=== PATIENT | male | born 1945 | race Caucasian/White ===

== ENCOUNTER 2017-03-26 17:13 | Inpatient (IN) | payer OTHER, MEDICARE ==
[2017-03-26] MEDS ORDERED: Atropine Sulfate 0.1 mg/mL 5 mL Syr IVP ONE ×2 (17:44→18:30)
[2017-03-26 17:52] LABS: % BASOPHILS 1.1 % (0.0-2.0); % EOSINOPHILS 4.6 % (0.0-5.0); % LYMPHOCYTES 30.8 % (20.0-50.0); % MONOCYTES 9.1 % (2.0-10.0); % NEUTROPHILS 54.4 % (40.0-80.0); HEMATOCRIT 42.4 % (41.0-60); MEAN CELL VOLUME 99.1 fl (80-99); MEAN CORPUSCULAR HEMOGLOBIN 32.8 pg (27.0-31.0); MEAN CORPUSCULAR HGB CONC 33.1 pg (28.0-36.0); MEAN PLATELET VOLUME 8.4 fl; NEUTROPHILE ABSOLUTE 3.5 Th/cmm (1.8-8.0); PLATELET COUNT 169 Th/cmm (150-400); RED BLOOD COUNT 4.27 Mil/cmm (3.80-5.80); RED CELL DISTRIBUTION WIDTH 12.7 % (11.5-20.0); WHITE BLOOD COUNT 6.5 Th/cmm (4.8-10.8)
--- NOTE | 2017-03-26 17:52 | ED Physician Chart ---
ED Chief Complaint/HPI - Patient Information Date Seen:: 03/26/17 Time Seen:: 17:30 Chief Complaint:: bradycardia History of Present Illness:: Patient took his blood pressure today which was 148/83 with a pulse of 39. He feels lightheaded and slightly short of breath. He denies chest pain. Allergies:: Allergies Allergy/AdvReac Type Severity Reaction Status Date / Time No Known Allergies Allergy Verified 03/26/17 17:33 Vitals:: Vital Signs - 8 hr 03/26/17 17:13 Temp 97.3 F HR 39 RR 16 BP 168/69 O2 Sat % 97 Historian:: Patient Review:: Nurse's Note Reviewed ED Review of Systems - Review of Systems General/Constitutional: No fever, No chills Skin: No skin lesions Head: No headache Eyes: No loss of vision ENT: No earache Neck: No neck pain, No swelling Cardio Vascular: No chest pain Pulmonary: SOB GI: No nausea, No vomiting G/U: No dysuria Musculoskeletal: No bone or joint pain, No muscle pain Endocrine: No polyuria, No polydipsia Psychiatric: No prior psych history Hematopoietic: No bruising Allergic/Immuno: No urticaria Neurological: No syncope, No focal symptoms ED Past Medical History - Past Medical History Past Medical History: HTN Family History: None Social History: Smoker, Alcohol, Other (smokes about 4-6 cigarettes a day; smoked one package of cigarettes a day for 50 years. Drinks alcohol about 3 times a week) Surgical History: other (chest for pneumothorax) Psychiatricy History: None Medication: Reviewed Family Medical History - Family Member Mother History Unknown: Yes ED Physical Exam - Physical Examination General/Constitutional: Well-developed, well-nourished, Alert, No distress Head: Atraumatic Eyes: Lids, conjuctiva normal, PERRL Skin: Nl inspection, No rash, No skin lesions, No ecchymosis ENMT: External ears, nose nl Neck: No nuchal rigidity Other Respiratory comments:: 2 out of 4 inspiratory expiratory wheezing Other Cardio Vascular comments:: faint regular rhythm with no murmur or extra sound GI: No tenderness/rebounding/guarding, No organomegaly, No hernia, Nondistended Extremities: No tenderness or effusion, Normal digits & nails Neuro/Psych: No focal deficits Misc: No paraspinal tenderness ED Labs/Radiology/EKG Results - Radiology Results Results: CXR normal - EKG Interpretations Rate & Rhythm: complete heart block; rate 38; RBBB ED Septic Shock - . Is Septic Shock (SBP<90, OR Lactate>4 mmol\L) present?: No - <6hrs of presentation: Vital Signs: Vital Signs - 8 hr 03/26/17 17:13 Temp 97.3 F HR 39 RR 16 BP 168/69 O2 Sat % 97 ED Reassessment (Disposition) - Reassessment Reassessment Condition:: Unchanged - Diagnosis Diagnosis:: bradycardia - Patient Disposition Admitted to:: Telemetry Condition at Disposition:: Unchanged ED Discharge Plan - Patient Disposition Admit/Discharge/Transfer: Acute Care w/in this hosp Condition at Disposition: Stable
[2017-03-26 18:10] LABS: ANION GAP 11.9 (7.0-16.0); BUN - UREA NITROGEN 21 mg/dL (7-25); CALCIUM SERUM 9.1 mg/dL (8.6-10.3); CARBON DIOXIDE 20.1 mEq/L (21.0-31.0); CHLORIDE 111 mEq/L (98-107); GLUCOSE 120 mg/dL (70-105); SODIUM SERUM 139 mEq/L (136-145)
[2017-03-26] MEDS ORDERED: guaiFENesin 200 MG/10 ML UDC PO PRN (18:16)
[2017-03-26] MEDS ORDERED: Mag Sulfate 2gm/50mL Premix 2 GM/50 ML BAG IV ONE ×3 (18:16→18:33)
[2017-03-26] MEDS: Albuterol Nebulizer 2.5mg/3mL HHN SCH (19:53)
[2017-03-26] MEDS: D5-0.9%NS 1,000 ML IV SCH (22:47)
[2017-03-27 04:46] LABS: % EOSINOPHILS 4.4 % (0.0-5.0); % LYMPHOCYTES 24.9 % (20.0-50.0); % MONOCYTES 7.1 % (2.0-10.0); % NEUTROPHILS 62.6 % (40.0-80.0); MEAN CORPUSCULAR HEMOGLOBIN 32.9 pg (27.0-31.0); MEAN CORPUSCULAR HGB CONC 33.2 pg (28.0-36.0); MEAN PLATELET VOLUME 8.3 fl; NEUTROPHILE ABSOLUTE 4.7 Th/cmm (1.8-8.0); PLATELET COUNT 163 Th/cmm (150-400); RED BLOOD COUNT 4.25 Mil/cmm (3.80-5.80); RED CELL DISTRIBUTION WIDTH 13.6 % (11.5-20.0); WHITE BLOOD COUNT 7.4 Th/cmm (4.8-10.8)
[2017-03-27 05:04] LABS: ALB/GLOB RATIO 1.6 (1.0-1.8); ALKALINE PHOSPHATASE 96 U/L (34-104); ANION GAP 8.7 (7.0-16.0); BILIRUBIN,TOTAL 0.4 mg/dL (0.3-1.0); BUN - UREA NITROGEN 19 mg/dL (7-25); BUN/CREATININE RATIO 21.1; CALCIUM SERUM 8.8 mg/dL (8.6-10.3); CHLORIDE 113 mEq/L (98-107); CREATININE - SERUM 0.9 mg/dL (0.7-1.3); GLUCOSE 125 mg/dL (70-105); MAGNESIUM 2.1 mg/dL (1.9-2.7); PHOSPHOROUS 3.1 mg/dL (2.5-5.0); POTASSIUM SERUM 3.7 mEq/L (3.5-5.1); SGOT 30 U/L (13-39); SGPT/ALT 26 U/L (7-52); SODIUM SERUM 141 mEq/L (136-145)
[2017-03-27] MEDS: Albuterol Nebulizer 2.5mg/3mL HHN SCH ×4 (07:02→19:04)
[2017-03-27 07:44] VITALS: BP 139/66
--- NOTE | 2017-03-27 08:33 | Diagnostic Imaging Report ---
CHEST X-RAY: AP view INDICATION: Arrhythmia COMPARISON: None FINDINGS: Chronic lung changes are noted with left basal scarring. There is no focal consolidation or pleural effusions The heart is normal in size. Atherosclerotic vascular disease noted. Degenerative changes of the spine are noted. There may have been old trauma to the left mid clavicle. IMPRESSION: Chronic lung changes and left basal scarring. No focal consolidation identified. Atherosclerotic vascular disease.
--- NOTE | 2017-03-27 08:39 | General Progress Note ---
Subjective - Review of Systems Service Date: 03/27/17 Events since last encounter: claudio in 30s await Cardiology eval Objective - Results Result Diagrams: 03/27/17 04:34 03/27/17 04:34 Recent Labs: Laboratory Last Values WBC 7.4 Th/cmm (4.8-10.8) 03/27/17 04:34 RBC 4.25 Mil/cmm (3.80-5.80) 03/27/17 04:34 Hgb 14.0 gm/dL (12-16) 03/27/17 04:34 Hct 42.0 % (41.0-60) 03/27/17 04:34 MCV 99.0 fl (80-99) 03/27/17 04:34 MCH 32.9 pg (27.0-31.0) H 03/27/17 04:34 MCHC Differential 33.2 pg (28.0-36.0) 03/27/17 04:34 RDW 13.6 % (11.5-20.0) 03/27/17 04:34 Plt Count 163 Th/cmm (150-400) 03/27/17 04:34 MPV 8.3 fl 03/27/17 04:34 Neutrophils % 62.6 % (40.0-80.0) 03/27/17 04:34 Lymphocytes % 24.9 % (20.0-50.0) 03/27/17 04:34 Monocytes % 7.1 % (2.0-10.0) 03/27/17 04:34 Eosinophils % 4.4 % (0.0-5.0) 03/27/17 04:34 Basophils % 1.0 % (0.0-2.0) 03/27/17 04:34 Sodium 141 mEq/L (136-145) 03/27/17 04:34 Potassium 3.7 mEq/L (3.5-5.1) 03/27/17 04:34 Chloride 113 mEq/L (98-107) H 03/27/17 04:34 Carbon Dioxide 23.0 mEq/L (21.0-31.0) 03/27/17 04:34 Anion Gap 8.7 (7.0-16.0) 03/27/17 04:34 BUN 19 mg/dL (7-25) 03/27/17 04:34 Creatinine 0.9 mg/dL (0.7-1.3) 03/27/17 04:34 Est GFR ( Amer) > 60.0 ml/min (>90) 03/27/17 04:34 Est GFR (Non-Af Amer) > 60.0 ml/min 03/27/17 04:34 BUN/Creatinine Ratio 21.1 03/27/17 04:34 Glucose 125 mg/dL (70-105) H 03/27/17 04:34 Calcium 8.8 mg/dL (8.6-10.3) 03/27/17 04:34 Phosphorus 3.1 mg/dL (2.5-5.0) 03/27/17 04:34 Magnesium 2.1 mg/dL (1.9-2.7) 03/27/17 04:34 Total Bilirubin 0.4 mg/dL (0.3-1.0) 03/27/17 04:34 AST 30 U/L (13-39) 03/27/17 04:34 ALT 26 U/L (7-52) 03/27/17 04:34 Alkaline Phosphatase 96 U/L (34-104) 03/27/17 04:34 Troponin I 0.01 ng/mL (0.01-0.05) 03/26/17 17:45 B-Natriuretic Peptide 377.0 pg/mL (5.0-100.0) H 03/26/17 17:45 Total Protein 5.9 gm/dL (6.0-8.3) L 03/27/17 04:34 Albumin 3.6 gm/dL (4.2-5.5) L 03/27/17 04:34 Globulin 2.3 gm/dL 03/27/17 04:34 Albumin/Globulin Ratio 1.6 (1.0-1.8) 03/27/17 04:34 TSH 1.81 uIU/ml (0.34-5.60) 03/27/17 04:34 - Physical Exam Vitals and I&O: Vital Signs Temp 98.0 F 03/27/17 04:00 Pulse 55 03/27/17 07:02 Resp 16 03/27/17 07:02 BP 139/66 03/27/17 07:44 Pulse Ox 98 03/27/17 07:02 Intake & Output 03/26/17 03/27/17 03/27/17 18:59 06:59 18:59 Intake Total 400 Output Total 450 Balance -50 Weight (lbs) 64.728 kg Intake: Oral 400 Output: Urine 450 Other: # Voids 1 # Bowel Movements 0 Active Medications: Current Medications Acetaminophen (Tylenol) 650 mg PO Q4H PRN PRN Reason: Pain Or Fever above 101 Stop: 05/25/17 18:15 Albuterol Sulfate (Albuterol 2.5mg/3ml Neb Ud) 2.5 mg HHN QIDRT [facility] Stop: 05/25/17 18:59 Last Admin: 03/27/17 07:02 Dose: 2.5 mg Aspirin (Ecotrin) 81 mg PO DAILY [facility] Stop: 05/26/17 08:59 Famotidine (Pepcid) 20 mg PO DAILY [facility] Stop: 05/26/17 08:59 Guaifenesin (Robitussin) 200 mg PO Q4HR PRN PRN Reason: Cough or Congestion Stop: 05/25/17 18:15 Dextrose/Sodium Chloride (D5-0.9%Ns) 1,000 mls @ 100 mls/hr IV .Q10H [facility] Stop: 05/25/17 18:29 Last Admin: 03/26/17 22:47 Dose: 100 mls/hr Nitroglycerin (Nitrostat) 0.4 mg SL Q5MIN PRN PRN Reason: Chest Pain Stop: 05/25/17 18:15 Ondansetron HCl (Zofran) 4 mg IV Q8H PRN PRN Reason: Nausea / Vomiting Stop: 05/25/17 18:15
[2017-03-27] MEDS ORDERED: FLUTICASONE IH SCH (09:00)
[2017-03-27] MEDS ORDERED: SALMETEROL IH SCH (09:00)
--- NOTE | 2017-03-27 09:54 | Diagnostic Imaging Report ---
CHEST X-RAY: AP view INDICATION: Cough, preop COMPARISON: 03/26/2017 FINDINGS: Overlying pads are seen along the left hemithorax. Chronic lung changes are noted with increased left basal lung markings. The heart is normal in size. Atherosclerosis of the aortic arch is noted. IMPRESSION: Chronic lung changes left basal lung markings which may be due to subsegmental atelectasis versus scarring. No focal consolidation identified Atherosclerotic vascular disease.
[2017-03-27] MEDS ORDERED: VTE Chemical Prophylaxis Screen/Admission MC PRN (10:32)
[2017-03-27] MEDS ORDERED: fentaNYL Citrate 100 mcg/2mL Vial IV ONE (12:00)
--- NOTE | 2017-03-27 13:09 | Internal Medicine Prog Note ---
Internal Medicine Subjective - Subjective Service Date: 03/27/17 ([id number]- [facility] dictated) Internal Medicine Objective - Results Result Diagrams: 03/27/17 04:34 03/27/17 04:34 Recent Labs: Laboratory Last Values WBC 7.4 Th/cmm (4.8-10.8) 03/27/17 04:34 RBC 4.25 Mil/cmm (3.80-5.80) 03/27/17 04:34 Hgb 14.0 gm/dL (12-16) 03/27/17 04:34 Hct 42.0 % (41.0-60) 03/27/17 04:34 MCV 99.0 fl (80-99) 03/27/17 04:34 MCH 32.9 pg (27.0-31.0) H 03/27/17 04:34 MCHC Differential 33.2 pg (28.0-36.0) 03/27/17 04:34 RDW 13.6 % (11.5-20.0) 03/27/17 04:34 Plt Count 163 Th/cmm (150-400) 03/27/17 04:34 MPV 8.3 fl 03/27/17 04:34 Neutrophils % 62.6 % (40.0-80.0) 03/27/17 04:34 Lymphocytes % 24.9 % (20.0-50.0) 03/27/17 04:34 Monocytes % 7.1 % (2.0-10.0) 03/27/17 04:34 Eosinophils % 4.4 % (0.0-5.0) 03/27/17 04:34 Basophils % 1.0 % (0.0-2.0) 03/27/17 04:34 Sodium 141 mEq/L (136-145) 03/27/17 04:34 Potassium 3.7 mEq/L (3.5-5.1) 03/27/17 04:34 Chloride 113 mEq/L (98-107) H 03/27/17 04:34 Carbon Dioxide 23.0 mEq/L (21.0-31.0) 03/27/17 04:34 Anion Gap 8.7 (7.0-16.0) 03/27/17 04:34 BUN 19 mg/dL (7-25) 03/27/17 04:34 Creatinine 0.9 mg/dL (0.7-1.3) 03/27/17 04:34 Est GFR ( Amer) > 60.0 ml/min (>90) 03/27/17 04:34 Est GFR (Non-Af Amer) > 60.0 ml/min 03/27/17 04:34 BUN/Creatinine Ratio 21.1 03/27/17 04:34 Glucose 125 mg/dL (70-105) H 03/27/17 04:34 Calcium 8.8 mg/dL (8.6-10.3) 03/27/17 04:34 Phosphorus 3.1 mg/dL (2.5-5.0) 03/27/17 04:34 Magnesium 2.1 mg/dL (1.9-2.7) 03/27/17 04:34 Total Bilirubin 0.4 mg/dL (0.3-1.0) 03/27/17 04:34 AST 30 U/L (13-39) 03/27/17 04:34 ALT 26 U/L (7-52) 03/27/17 04:34 Alkaline Phosphatase 96 U/L (34-104) 03/27/17 04:34 Troponin I 0.01 ng/mL (0.01-0.05) 03/26/17 17:45 B-Natriuretic Peptide 377.0 pg/mL (5.0-100.0) H 03/26/17 17:45 Total Protein 5.9 gm/dL (6.0-8.3) L 03/27/17 04:34 Albumin 3.6 gm/dL (4.2-5.5) L 03/27/17 04:34 Globulin 2.3 gm/dL 03/27/17 04:34 Albumin/Globulin Ratio 1.6 (1.0-1.8) 03/27/17 04:34 TSH 1.81 uIU/ml (0.34-5.60) 03/27/17 04:34 - Physical Exam Vitals and I&O: Vital Signs Temp 98.0 F 03/27/17 04:00 Pulse 55 03/27/17 07:02 Resp 16 03/27/17 07:02 BP 139/66 03/27/17 07:44 Pulse Ox 98 03/27/17 11:52 Intake & Output 03/26/17 03/27/17 03/27/17 18:59 06:59 18:59 Intake Total 400 Output Total 450 Balance -50 Weight (lbs) 142 lb 11.2 oz Intake: Oral 400 Output: Urine 450 Other: # Voids 1 # Bowel Movements 0 Active Medications: Current Medications Acetaminophen (Tylenol) 650 mg PO Q4H PRN PRN Reason: Pain Or Fever above 101 Stop: 05/25/17 18:15 Albuterol Sulfate (Albuterol 2.5mg/3ml Neb Ud) 2.5 mg HHN QIDRT [facility] Stop: 05/25/17 18:59 Last Admin: 03/27/17 10:20 Dose: 2.5 mg Aspirin (Ecotrin) 81 mg PO DAILY [facility] Stop: 05/26/17 08:59 Last Admin: 03/27/17 11:56 Dose: Not Given Famotidine (Pepcid) 20 mg PO DAILY [facility] Stop: 05/26/17 08:59 Last Admin: 03/27/17 11:57 Dose: Not Given Guaifenesin (Robitussin) 200 mg PO Q4HR PRN PRN Reason: Cough or Congestion Stop: 05/25/17 18:15 Heparin Sodium (Porcine) (Heparin) 5,000 units SUBQ Q12H [facility] Stop: 05/26/17 20:59 Dextrose/Sodium Chloride (D5-0.9%Ns) 1,000 mls @ 100 mls/hr IV .Q10H [facility] Stop: 05/25/17 18:29 Last Admin: 03/26/17 22:47 Dose: 100 mls/hr Miscellaneous ([employer] Prophylaxis Screen/ Admission) 1 ea [facility] PRN PRN PRN Reason: PROTOCOL Stop: 05/26/17 10:31 Nitroglycerin (Nitrostat) 0.4 mg SL Q5MIN PRN PRN Reason: Chest Pain Stop: 05/25/17 18:15 Ondansetron HCl (Zofran) 4 mg IV Q8H PRN PRN Reason: Nausea / Vomiting Stop: 05/25/17 18:15 Internal Medicine Assmt/Plan - Assessment Assessment: Bradycardia 3rd Degree AV Block HTN DM Protein calorie malnutrition
[2017-03-27 14:50] LABS: INR 0.93 (0.5-1.4); PROTHROMBIN TIME (TEST) 9.7 SECONDS (9.5-11.5)
[2017-03-27 14:56] LABS: URINE BILIRUBIN NEGATIVE (NEGATIVE); URINE BLOOD NEGATIVE (NEGATIVE); URINE GLUCOSE (UA) NEGATIVE (NEGATIVE); URINE KETONE NEGATIVE (NEGATIVE); URINE PROTEIN 30 mg/dL (NEGATIVE); URINE UROBILINOGEN 0.2 E.U./dL (0.2 - 1.0)
[2017-03-27 14:57] LABS: URINE COLOR YELLOW
[2017-03-27 14:58] LABS: URINE BACTERIA NONE SEEN /hpf (NONE SEEN); URINE EPITHELIAL CELLS NONE SEEN /lpf (FEW); URINE RBC NONE SEEN /hpf (0-5); URINE WBC NONE SEEN /hpf (0-5)
--- NOTE | 2017-03-27 15:05 | History & Physical ---
ADMIT DATE: 03/27/2017 CHIEF COMPLAINT: Bradycardia. HISTORY OF PRESENT ILLNESS: This is a 71-year-old male who was at his PCP's office. The patient was noted to have a low heart rate. For this reason, the patient was sent by his PCP to the ER to be evaluated. The patient is now admitted in the ICU unit. The patient denies any chest pain or any shortness of breath. PAST MEDICAL HISTORY: Hypertension, type 2 diabetes. SURGERIES: Denies any surgeries in the past. ALLERGIES: No drug allergies. SOCIAL HISTORY: The patient smokes half a pack per day. Denies any alcohol. Denies any illicit drug usage. FAMILY HISTORY: Noncontributory. REVIEW OF SYSTEMS: GENERAL: Denies any fevers, any chills. CARDIOVASCULAR: Denies any chest pain. RESPIRATORY: Denies any shortness of breath or cough. GASTROINTESTINAL: Denies nausea, vomiting, abdominal pain. GENITOURINARY: Denies dysuria. All other systems are reviewed by me and are negative. PHYSICAL EXAMINATION: GENERAL: The patient is well developed, well nourished, no acute distress. VITAL SIGNS: Temperature 98.0, heart rate 64, blood pressure 127/66, respirations 19, O2 96%. HEENT: Head; normocephalic, atraumatic. NECK: Supple. No mass. LUNGS: Clear bilaterally. HEART: ____. No murmurs or gallops. LABORATORY DATA: The patient had a chest x-ray done and the impression is, chronic lung changes, left basal lung markings, which may be due to subsegmental atelectasis versus scarring. No focal consolidation identified. ASSESSMENT: Bradycardia, third-degree AV block hypertension, diabetes, protein-calorie malnutrition. PLAN: The patient to be admitted to the ICU unit. We will get Cardiology on the case. IV fluids for hydration. We will monitor patient's magnesium level. We will continue to follow this patient. JOB# [id number]
--- NOTE | 2017-03-27 15:27 | Cardiology ---
03/26/[address] Moreno. M-MODE ECHOCARDIOGRAM: Mitral valve, anterior leaflet of mitral valve shows normal excursion, EF velocity. Posterior leaflet of mitral valve shows normal excursion. Left ventricular posterior wall shows increased thickness, normal excursion. Interventricular septum shows increased thickness, normal excursion. Hypertrophy of the left ventricle, ejection fraction 66%. Left atrium normal. Aortic root shows normal dimension, normal excursion of aortic leaflets. CONCLUSION: Hypertrophy of the left ventricle, ejection fraction 66%. 2D ECHO: Long axis view showed normal sized left ventricle with hypertrophy of the left ventricle. Left atrium normal. Aortic root shows normal dimension, normal excursion of aortic leaflets. Short axis view of mitral valve normal. Short axis view of aortic valve normal. Apical four chamber view showed normal sized left ventricle, left atrium, right ventricle, right atrium, tricuspid and mitral valve with hypertrophy of the left ventricle. CONCLUSION: Hypertrophy of the left ventricle, ejection fraction 66%. Doppler study shows mild mitral regurgitation, mild tricuspid regurgitation, right ventricular systolic pressure 34 mmHg. CONCLUSION: Hypertrophy of the left ventricle, mild mitral regurgitation, mild tricuspid regurgitation, ejection fraction 66%. JOB# [id number]
[2017-03-27] MEDS ORDERED: Hydrocodone/APAP 10 mg/325 mg Tab PO PRN (18:23)
--- NOTE | 2017-03-27 19:17 | Consultation ---
DATE OF CONSULTATION: 03/27/2017 REFERRING PHYSICIAN: Dr. Moreno. REASON FOR CONSULTATION: Bradycardia, symptomatic. Thank you for referring this patient to me. HISTORY OF PRESENT ILLNESS: This is a 71-year-old male who comes in through Emergency Room, sent by the primary care physician because of heart rate in the 30s. Does complain of slight tenderness on shortness of breath. The patient is a known hypertensive and has been getting medications for his heart for the last few years. He denies CT in the past. His hypertension is apparently family well controlled. The medications he takes include metoprolol, and valsartan or Diovan. LABORATORY STUDIES: CBC normal. BUN and creatinine are also normal. Blood sugar slightly high at 120. BNP is 377. The patient underwent an echocardiogram with ejection fraction of 66%. Cardiology evaluation by Dr. Gualberto Solano; he has recommended the patient undergo placement of dual pacemaker. Informed consent discussed with the patient regarding the possible complications of the procedure that might include bleeding, infection, dislodgement of the catheter, malfunction, etc. If a needle is used via ultrasound to access the subclavian vein, possibility of pneumothorax also. The patient understands and has signed consent for the procedure. JOB# [id number] [id number]
--- NOTE | 2017-03-27 19:42 | Operative Report ---
DATE OF SURGERY: 03/27/2017 PREOPERATIVE DIAGNOSES: 1. Sinus bradycardia, symptomatic. 2. Hypertension. POSTOPERATIVE DIAGNOSES: 1. Sinus bradycardia, symptomatic. 2. Hypertension. OPERATION DONE: Placement of DDD pacemaker under fluoroscopy. SURGEON: Iain Rendon M.D. ANESTHESIA: General. ANESTHESIOLOGIST: Armand INDICATION: The patient had bradycardia in the 30s and sent in by primary care. Seen by mirror maker who request that placement of DDD pacemaker. ESTIMATED BLOOD LOSS: 2 mL. OPERATIVE FINDINGS: Were the following thresholds, the right atrial pulse amplitude 4.0, pulse width of 0.4 milliseconds, sensitivity 0.4 millivolts. The right ventricular pulse amplitude 4.0 volts, pulse width 0.4 milliseconds, sensitivity at 4.0 millivolts; rate, lower of 60 and upper of 130 was set. The P-wave was 4.70, the resistance 604 ohms. The right ventricular R-wave 4.20 with resistance of 624 ohms. DESCRIPTION OF PROCEDURE: Procedure was given general anesthesia. The left chest was prepped with ChloraPrep and draped in appropriate manner. 1% lidocaine was used to infiltrate the deltopectoral groove on the left side. Incision was made and the cephalic vein was isolated. The vein however, was still small to accommodate the lead. A direct needle stick was then made into the subclavian vein via ultrasound. The guidewire was inserted under fluoroscopy, and followed the course into the inferior vena cava. The introducer was placed over the guidewire under fluoroscopy the ventricular lead was introduced. Suitable location in the right ventricular apex was located and the screw was deployed. The introducer was removed and the new introducer was placed over the retained guidewire. Under fluoroscopy, the atrial lead was inserted and suitable location in the right ventricular chamber was found. The screw was deployed. Following removal of the introducer the lead was sutured in place. A subcutaneous pocket was then made and MRI compatible generator was connected to the wires. Following satisfactory hemostasis, the incision was closed with running suture of 3-0 Vicryl subcutaneously and 4-0 for the subcutaneous tissues. Dermabond, 2 x 2 and Op-Site was applied over ____. Portable chest x-ray will be done, ordered. The following thresholds were obtained: RA: p wave of4.7, ms. .4, voltage .60, 604 ohms RV: R wave of 4.20, voltage .40, 624 ohms [employer] leads: atrial Solia 45, SN [id number] Ventricular Solia 53 SN [id number] Generator Eluna 8DR-T SN [id number] JOB# [id number] MTDD
[2017-03-28] MEDS: D5-0.9%NS 1,000 ML IV SCH (00:15)
[2017-03-28 05:17] LABS: ANION GAP 7.4 (7.0-16.0); BUN - UREA NITROGEN 13 mg/dL (7-25); BUN/CREATININE RATIO 16.3; CALCIUM SERUM 8.2 mg/dL (8.6-10.3); CARBON DIOXIDE 22.2 mEq/L (21.0-31.0); CHLORIDE 112 mEq/L (98-107); CREATININE - SERUM 0.8 mg/dL (0.7-1.3); GLUCOSE 139 mg/dL (70-105); POTASSIUM SERUM 3.6 mEq/L (3.5-5.1); SODIUM SERUM 138 mEq/L (136-145)
[2017-03-28 05:27] LABS: % BASOPHILS 0.1 % (0.0-2.0); MEAN CORPUSCULAR HEMOGLOBIN 33.8 pg (27.0-31.0); NEUTROPHILE ABSOLUTE 5.7 Th/cmm (1.8-8.0); WHITE BLOOD COUNT 7.5 Th/cmm (4.8-10.8)
[2017-03-28 05:35] LABS: % EOSINOPHILS 2.4 % (0.0-5.0); % LYMPHOCYTES 14.4 % (20.0-50.0); % MONOCYTES 6.3 % (2.0-10.0); % NEUTROPHILS 76.8 % (40.0-80.0); HEMOGLOBIN 12.7 gm/dL (12-16); MEAN CELL VOLUME 100.1 fl (80-99); MEAN CORPUSCULAR HGB CONC 33.8 pg (28.0-36.0); MEAN PLATELET VOLUME 8.8 fl; RED BLOOD COUNT 3.76 Mil/cmm (3.80-5.80); RED CELL DISTRIBUTION WIDTH 13.4 % (11.5-20.0)
[2017-03-28 05:37] LABS: PLATELET COUNT 133 Th/cmm (150-400)
[2017-03-28 05:39] LABS: HEMATOCRIT 37.6 % (41.0-60)
[2017-03-28] MEDS: Albuterol Nebulizer 2.5mg/3mL HHN SCH ×4 (06:59→19:23)
--- NOTE | 2017-03-28 09:05 | Diagnostic Imaging Report ---
Fluoroscopy was utilized for facilitation of pacemaker insertion. These refer to the procedural report for complete details. The total fluoroscopic time the exam was 1 minute and 32 seconds.
--- NOTE | 2017-03-28 09:08 | Diagnostic Imaging Report ---
CHEST X-RAY: AP view INDICATION: Pacemaker COMPARISON: Chest x-ray earlier the same day FINDINGS: The patient is status post left chest wall pacemaker placement with leads in the region of the right atrium and right ventricle. Chronic lung changes are seen with no focal consolidation or effusions. Mild cardiomegaly is noted. No evidence of pneumothorax. IMPRESSION: Status post left chest wall pacemaker placement with leads in the region of the right atrium and right ventricle. No evidence of pneumothorax. Mild cardiomegaly.
--- NOTE | 2017-03-28 09:12 | Diagnostic Imaging Report ---
CHEST X-RAY: AP view INDICATION: Post pacemaker placement COMPARISON: Chest x-ray 03/27/2017 at 1839 FINDINGS: Improved lung aeration is noted. Left chest wall pacemaker is stable. Left lower and left upper lung zone increased markings are noted. No focal consolidation or effusions. No pneumothorax. Heart size is borderline prominent. IMPRESSION: Stable appearance of left chest wall pacemaker apparatus with leads in the region of the right atrium and right ventricle. Left upper and left lower lung zone increased lung markings probably due to atelectasis. Underlying infiltrate is less likely No evidence of pneumothorax.
[2017-03-28] MEDS ORDERED: ISOFLURANE 100 ML BOTTLE INH ONE (10:03)
--- NOTE | 2017-03-28 10:44 | Diagnostic Imaging Report ---
C-arm fluoroscopy was utilized for facilitation of pacemaker placement. The total fluoroscopic time for the exam was 1 minute and 25 seconds. Please refer to the procedure report for complete details.
--- NOTE | 2017-03-28 10:55 | Operative Report ---
DATE OF SURGERY: 03/28/2017 PREOPERATIVE DIAGNOSES: 1. Displaced atrial and ventricular lead pacemakers. 2. Hypertension. 3. Severe symptomatic bradycardia. POSTOPERATIVE DIAGNOSES: 1. Displaced atrial and ventricular lead pacemaker. 2. Hypertension. 3. Severe symptomatic bradycardia. OPERATION DONE: 1. Reposition of the ventricular lead. 2. Reposition of the atrial lead. SURGEON: Justice Timmons M.D. ANESTHESIA: General. ANESTHESIOLOGIST: Dr. Acuna. ESTIMATED BLOOD LOSS: None. INDICATIONS FOR SURGERY: Following placement of DDD pacemaker yesterday, the patient apparently tried to help OR personnel in getting out of the OR table to the hospital bed. The heart rate was at 31 at one time during the night and the external pacer was reapplied. OPERATIVE FINDINGS: At this time, the leads were repositioned physician and the new thresholds for the atrial lead is T-wave 1.60, 0.4 milliseconds, voltage 0.6, resistance 780 Ohms. The ventricular lead was given more slack and new thresholds_ since at 4.20, 0.4 milliseconds and 0.4 volts with resistance of 916 ohms. DESCRIPTION OF PROCEDURE: The patient was given general anesthesia. The left chest at the operative site was prepped with ChloraPrep and draped. The sutures were removed and the open wound was reprepped with Betadine. The generator was explanted and the leads detached from the generator. Under fluoroscopy, the leads were found to be without any slack both in atrial and ventricular. These were then repositioned following withdrawal of the screw into another location with good thresholds and more slack was given. The screw was redeployed. This was repeated on the atrial lead as well. Following satisfactory capture, the incision was closed with 3-0 Vicryl. Sterile dressing was placed over this. The patient tolerated the procedure well. JOB# [id number] ERIC
--- NOTE | 2017-03-28 11:45 | General Progress Note ---
Subjective - Review of Systems Service Date: 03/28/17 Events since last encounter: atrial lead repositioned patient tends to move about vigorously and cough hard shoulder immobilizer applied again Objective - Results Result Diagrams: 03/28/17 04:47 03/28/17 04:47 Recent Labs: Laboratory Last Values WBC 7.5 Th/cmm (4.8-10.8) 03/28/17 04:47 RBC 3.76 Mil/cmm (3.80-5.80) L 03/28/17 04:47 Hgb 12.7 gm/dL (12-16) 03/28/17 04:47 Hct 37.6 % (41.0-60) L D 03/28/17 04:47 MCV 100.1 fl (80-99) H 03/28/17 04:47 MCH 33.8 pg (27.0-31.0) H 03/28/17 04:47 MCHC Differential 33.8 pg (28.0-36.0) 03/28/17 04:47 RDW 13.4 % (11.5-20.0) 03/28/17 04:47 Plt Count 133 Th/cmm (150-400) L 03/28/17 04:47 MPV 8.8 fl 03/28/17 04:47 Neutrophils % 76.8 % (40.0-80.0) 03/28/17 04:47 Lymphocytes % 14.4 % (20.0-50.0) L 03/28/17 04:47 Monocytes % 6.3 % (2.0-10.0) 03/28/17 04:47 Eosinophils % 2.4 % (0.0-5.0) 03/28/17 04:47 Basophils % 0.1 % (0.0-2.0) 03/28/17 04:47 PT 9.7 SECONDS (9.5-11.5) 03/27/17 04:29 INR 0.93 (0.5-1.4) 03/27/17 04:29 PTT (Actin FS) 23.2 SECONDS (26.0-38.0) L 03/27/17 04:29 Sodium 138 mEq/L (136-145) 03/28/17 04:47 Potassium 3.6 mEq/L (3.5-5.1) 03/28/17 04:47 Chloride 112 mEq/L (98-107) H 03/28/17 04:47 Carbon Dioxide 22.2 mEq/L (21.0-31.0) 03/28/17 04:47 Anion Gap 7.4 (7.0-16.0) 03/28/17 04:47 BUN 13 mg/dL (7-25) 03/28/17 04:47 Creatinine 0.8 mg/dL (0.7-1.3) 03/28/17 04:47 Est GFR ( Amer) > 60.0 ml/min (>90) 03/28/17 04:47 Est GFR (Non-Af Amer) > 60.0 ml/min 03/28/17 04:47 BUN/Creatinine Ratio 16.3 03/28/17 04:47 Glucose 139 mg/dL (70-105) H 03/28/17 04:47 POC Glucose 143 MG/DL (70 - 105) H 03/27/17 14:54 Calcium 8.2 mg/dL (8.6-10.3) L 03/28/17 04:47 Phosphorus 3.1 mg/dL (2.5-5.0) 03/27/17 04:34 Magnesium 2.1 mg/dL (1.9-2.7) 03/27/17 04:34 Total Bilirubin 0.4 mg/dL (0.3-1.0) 03/27/17 04:34 AST 30 U/L (13-39) 03/27/17 04:34 ALT 26 U/L (7-52) 03/27/17 04:34 Alkaline Phosphatase 96 U/L (34-104) 03/27/17 04:34 Troponin I 0.01 ng/mL (0.01-0.05) 03/26/17 17:45 B-Natriuretic Peptide 377.0 pg/mL (5.0-100.0) H 03/26/17 17:45 Total Protein 5.9 gm/dL (6.0-8.3) L 03/27/17 04:34 Albumin 3.6 gm/dL (4.2-5.5) L 03/27/17 04:34 Globulin 2.3 gm/dL 03/27/17 04:34 Albumin/Globulin Ratio 1.6 (1.0-1.8) 03/27/17 04:34 TSH 1.81 uIU/ml (0.34-5.60) 03/27/17 04:34 Urine Source RANDOM 03/27/17 14:45 Urine Color YELLOW 03/27/17 14:45 Urine Clarity CLEAR (CLEAR) 03/27/17 14:45 Urine pH 6.0 (4.6 - 8.0) 03/27/17 14:45 Ur Specific [place] >= 1.030 (1.005-1.030) 03/27/17 14:45 Urine Protein 30 mg/dL (NEGATIVE) H 03/27/17 14:45 Urine Glucose (UA) NEGATIVE mg/dL (NEGATIVE) 03/27/17 14:45 Urine Ketones NEGATIVE mg/dL (NEGATIVE) 03/27/17 14:45 Urine Blood NEGATIVE (NEGATIVE) 03/27/17 14:45 Urine Nitrate NEGATIVE (NEGATIVE) 03/27/17 14:45 Urine Bilirubin NEGATIVE (NEGATIVE) 03/27/17 14:45 Urine Urobilinogen 0.2 E.U./dL (0.2 - 1.0) 03/27/17 14:45 Ur Leukocyte Esterase NEGATIVE (NEGATIVE) 03/27/17 14:45 Urine RBC NONE SEEN /hpf (0-5) 03/27/17 14:45 Urine WBC NONE SEEN /hpf (0-5) 03/27/17 14:45 Ur Epithelial Cells NONE SEEN /lpf (FEW) 03/27/17 14:45 Urine Bacteria NONE SEEN /hpf (NONE SEEN) 03/27/17 14:45 - Physical Exam Vitals and I&O: Vital Signs Temp 98.0 F 03/28/17 08:00 Pulse 90 03/28/17 08:00 Resp 16 03/28/17 08:00 BP 179/99 03/28/17 08:00 Pulse Ox 98 03/28/17 08:00 Intake & Output 03/27/17 03/28/17 03/28/17 18:59 06:59 18:59 Intake Total 1735 Output Total 400 Balance 1335 Weight (lbs) 63.73 kg Intake: Intake, IV Amount 1575 D5-0.9%Ns 1,000 ml @ 100 1575 mls/hr IV .Q10H [facility] Rx#: [id number] Oral 160 Output: Urine 400 Other: # Voids 1 # Bowel Movements 0 Active Medications: Current Medications Acetaminophen (Tylenol) 650 mg PO Q4H PRN PRN Reason: Pain Or Fever above 101 Stop: 05/25/17 18:15 Last Admin: 03/27/17 20:40 Dose: 650 mg Acetaminophen/Hydrocodone Bitart ([place] 10 Mg/325 Mg) 1 tab PO Q4H PRN PRN Reason: pain Stop: 05/26/17 18:22 Albuterol Sulfate (Albuterol 2.5mg/3ml Neb Ud) 2.5 mg HHN QIDRT [facility] Stop: 05/25/17 18:59 Last Admin: 03/28/17 06:59 Dose: 2.5 mg Aspirin (Ecotrin) 81 mg PO DAILY [facility] Stop: 05/26/17 08:59 Last Admin: 03/28/17 09:47 Dose: Not Given Famotidine (Pepcid) 20 mg PO DAILY [facility] Stop: 05/26/17 08:59 Last Admin: 03/28/17 09:47 Dose: Not Given Guaifenesin (Robitussin) 200 mg PO Q4HR PRN PRN Reason: Cough or Congestion Stop: 05/25/17 18:15 Heparin Sodium (Porcine) (Heparin) 5,000 units SUBQ Q12H [facility] Stop: 05/26/17 20:59 Last Admin: 03/28/17 09:47 Dose: Not Given Dextrose/Sodium Chloride (D5-0.9%Ns) 1,000 mls @ 100 mls/hr IV .Q10H [facility] Stop: 05/25/17 18:29 Last Infusion: 03/28/17 06:00 Dose: 100 mls/hr Metoprolol Tartrate (Lopressor) 50 mg PO DAILY [facility] Stop: 05/26/17 20:14 Last Admin: 03/28/17 09:47 Dose: Not Given Miscellaneous (Vte Chemical Prophylaxis Screen/ Admission) 1 ea [facility] PRN PRN PRN Reason: PROTOCOL Stop: 05/26/17 10:31 Nitroglycerin (Nitrostat) 0.4 mg SL Q5MIN PRN PRN Reason: Chest Pain Stop: 05/25/17 18:15 Ondansetron HCl (Zofran) 4 mg IV Q8H PRN PRN Reason: Nausea / Vomiting Stop: 05/25/17 18:15 Valsartan (Diovan) 320 mg PO DAILY [facility] Stop: 05/26/17 21:59 Last Admin: 03/28/17 09:47 Dose: Not Given
[2017-03-28] MEDS ORDERED: fentaNYL Citrate 100 mcg/2mL Vial IV ONE (12:00)
[2017-03-28] MEDS ORDERED: Lactated Ringer 1,000 ML IV ONE (12:00)
[2017-03-28] MEDS ORDERED: D5-0.9%NS 1,000 ML IV SCH (13:58)
--- NOTE | 2017-03-28 14:00 | Internal Medicine Prog Note ---
Internal Medicine Subjective - Subjective Patient seen and examined:: with staff, chart reviewed Patient is:: awake, verbal, interactive, in bed Patient Complaints of:: headache Per staff patient has:: no adverse event, no episodes of fall, tolerating meds Internal Medicine Objective - Results Result Diagrams: 03/28/17 04:47 03/28/17 04:47 Recent Labs: Laboratory Last Values WBC 7.5 Th/cmm (4.8-10.8) 03/28/17 04:47 RBC 3.76 Mil/cmm (3.80-5.80) L 03/28/17 04:47 Hgb 12.7 gm/dL (12-16) 03/28/17 04:47 Hct 37.6 % (41.0-60) L D 03/28/17 04:47 MCV 100.1 fl (80-99) H 03/28/17 04:47 MCH 33.8 pg (27.0-31.0) H 03/28/17 04:47 MCHC Differential 33.8 pg (28.0-36.0) 03/28/17 04:47 RDW 13.4 % (11.5-20.0) 03/28/17 04:47 Plt Count 133 Th/cmm (150-400) L 03/28/17 04:47 MPV 8.8 fl 03/28/17 04:47 Neutrophils % 76.8 % (40.0-80.0) 03/28/17 04:47 Lymphocytes % 14.4 % (20.0-50.0) L 03/28/17 04:47 Monocytes % 6.3 % (2.0-10.0) 03/28/17 04:47 Eosinophils % 2.4 % (0.0-5.0) 03/28/17 04:47 Basophils % 0.1 % (0.0-2.0) 03/28/17 04:47 PT 9.7 SECONDS (9.5-11.5) 03/27/17 04:29 INR 0.93 (0.5-1.4) 03/27/17 04:29 PTT (Actin FS) 23.2 SECONDS (26.0-38.0) L 03/27/17 04:29 Sodium 138 mEq/L (136-145) 03/28/17 04:47 Potassium 3.6 mEq/L (3.5-5.1) 03/28/17 04:47 Chloride 112 mEq/L (98-107) H 03/28/17 04:47 Carbon Dioxide 22.2 mEq/L (21.0-31.0) 03/28/17 04:47 Anion Gap 7.4 (7.0-16.0) 03/28/17 04:47 BUN 13 mg/dL (7-25) 03/28/17 04:47 Creatinine 0.8 mg/dL (0.7-1.3) 03/28/17 04:47 Est GFR ( Amer) > 60.0 ml/min (>90) 03/28/17 04:47 Est GFR (Non-Af Amer) > 60.0 ml/min 03/28/17 04:47 BUN/Creatinine Ratio 16.3 03/28/17 04:47 Glucose 139 mg/dL (70-105) H 03/28/17 04:47 POC Glucose 143 MG/DL (70 - 105) H 03/27/17 14:54 Calcium 8.2 mg/dL (8.6-10.3) L 03/28/17 04:47 Phosphorus 3.1 mg/dL (2.5-5.0) 03/27/17 04:34 Magnesium 2.1 mg/dL (1.9-2.7) 03/27/17 04:34 Total Bilirubin 0.4 mg/dL (0.3-1.0) 03/27/17 04:34 AST 30 U/L (13-39) 03/27/17 04:34 ALT 26 U/L (7-52) 03/27/17 04:34 Alkaline Phosphatase 96 U/L (34-104) 03/27/17 04:34 Troponin I 0.01 ng/mL (0.01-0.05) 03/26/17 17:45 B-Natriuretic Peptide 377.0 pg/mL (5.0-100.0) H 03/26/17 17:45 Total Protein 5.9 gm/dL (6.0-8.3) L 03/27/17 04:34 Albumin 3.6 gm/dL (4.2-5.5) L 03/27/17 04:34 Globulin 2.3 gm/dL 03/27/17 04:34 Albumin/Globulin Ratio 1.6 (1.0-1.8) 03/27/17 04:34 TSH 1.81 uIU/ml (0.34-5.60) 03/27/17 04:34 Urine Source RANDOM 03/27/17 14:45 Urine Color YELLOW 03/27/17 14:45 Urine Clarity CLEAR (CLEAR) 03/27/17 14:45 Urine pH 6.0 (4.6 - 8.0) 03/27/17 14:45 Ur Specific [place] >= 1.030 (1.005-1.030) 03/27/17 14:45 Urine Protein 30 mg/dL (NEGATIVE) H 03/27/17 14:45 Urine Glucose (UA) NEGATIVE mg/dL (NEGATIVE) 03/27/17 14:45 Urine Ketones NEGATIVE mg/dL (NEGATIVE) 03/27/17 14:45 Urine Blood NEGATIVE (NEGATIVE) 03/27/17 14:45 Urine Nitrate NEGATIVE (NEGATIVE) 03/27/17 14:45 Urine Bilirubin NEGATIVE (NEGATIVE) 03/27/17 14:45 Urine Urobilinogen 0.2 E.U./dL (0.2 - 1.0) 03/27/17 14:45 Ur Leukocyte Esterase NEGATIVE (NEGATIVE) 03/27/17 14:45 Urine RBC NONE SEEN /hpf (0-5) 03/27/17 14:45 Urine WBC NONE SEEN /hpf (0-5) 03/27/17 14:45 Ur Epithelial Cells NONE SEEN /lpf (FEW) 03/27/17 14:45 Urine Bacteria NONE SEEN /hpf (NONE SEEN) 03/27/17 14:45 - Physical Exam Vitals and I&O: Vital Signs Temp 98.0 F 03/28/17 12:50 Pulse 93 03/28/17 13:30 Resp 14 03/28/17 13:30 BP 164/105 03/28/17 13:30 Pulse Ox 98 03/28/17 13:30 Intake & Output 03/27/17 03/28/17 03/28/17 18:59 06:59 18:59 Intake Total 1735 Output Total 400 Balance 1335 Weight (lbs) 63.73 kg Intake: Intake, IV Amount 1575 D5-0.9%Ns 1,000 ml @ 100 1575 mls/hr IV .Q10H [facility] Rx#: [id number] Oral 160 Output: Urine 400 Other: # Voids 1 # Bowel Movements 0 Active Medications: Current Medications Acetaminophen (Tylenol) 650 mg PO Q4H PRN PRN Reason: Pain Or Fever above 101 Stop: 05/25/17 18:15 Last Admin: 03/27/17 20:40 Dose: 650 mg Acetaminophen/Hydrocodone Bitart ([place] 10 Mg/325 Mg) 1 tab PO Q4H PRN PRN Reason: pain Stop: 05/26/17 18:22 Albuterol Sulfate (Albuterol 2.5mg/3ml Neb Ud) 2.5 mg HHN QIDRT [facility] Stop: 05/25/17 18:59 Last Admin: 03/28/17 11:49 Dose: Not Given Aspirin (Ecotrin) 81 mg PO DAILY [facility] Stop: 05/26/17 08:59 Last Admin: 03/28/17 09:47 Dose: Not Given Famotidine (Pepcid) 20 mg PO DAILY [facility] Stop: 05/26/17 08:59 Last Admin: 03/28/17 09:47 Dose: Not Given Guaifenesin (Robitussin) 200 mg PO Q4HR PRN PRN Reason: Cough or Congestion Stop: 05/25/17 18:15 Heparin Sodium (Porcine) (Heparin) 5,000 units SUBQ Q12H [facility] Stop: 05/26/17 20:59 Last Admin: 03/28/17 09:47 Dose: Not Given Metoprolol Tartrate (Lopressor) 50 mg PO DAILY [facility] Stop: 05/26/17 20:14 Last Admin: 03/28/17 13:25 Dose: 50 mg Miscellaneous (Vte Chemical Prophylaxis Screen/ Admission) 1 ea [facility] PRN PRN PRN Reason: PROTOCOL Stop: 05/26/17 10:31 Nitroglycerin (Nitrostat) 0.4 mg SL Q5MIN PRN PRN Reason: Chest Pain Stop: 05/25/17 18:15 Ondansetron HCl (Zofran) 4 mg IV Q8H PRN PRN Reason: Nausea / Vomiting Stop: 05/25/17 18:15 Valsartan (Diovan) 80 mg PO BID [facility] Stop: 05/27/17 19:59 General: alert HEENT: NC/AT, PERRLA, EOMI Neck: Supple, No LAD Lungs: CTAB Cardiovascular: RRR, Normal S1, Normal S2, with murmur Abdomen: soft, non-tender, globular, non-distended, positive bowel sound Extremities: clear Neurological: no change Internal Medicine Assmt/Plan - Assessment Assessment: sp pacer 2 3 degree av block dm htn protein calorie mal - Plan Plan: cont on iv hydration will titrate bp meds pain control surg and card follow up belem rn and family
[2017-03-28] MEDS ORDERED: Probiotic Screen MC PRN (15:38)
--- NOTE | 2017-03-29 03:04 | Consultation ---
DATE OF CONSULTATION: 03/27/[address] Moreno and primary doctor is Dr. Edward Mancilla. HISTORY AND PHYSICAL: This is a 71-year-old male patient, who was brought to the Emergency Room and the patient was found to have complete heart block at this time. The patient is admitted to ICU and cardiology consult is requested. The patient is on external pacemaker at the present time, pacing 100%. PAST MEDICAL HISTORY: Hypertension, diabetes, COPD, nicotine dependence. FAMILY HISTORY: Unremarkable. SOCIAL HISTORY: The patient has been smoker, as well as uses alcohol socially. ALLERGIES: None. PHYSICAL EXAMINATION: VITAL SIGNS: Blood pressure ____ complete heart block. HEAD: Normocephalic. No lumps or bumps. EYES: Pupils equal, reactive to light. Fundi show AV nicking. Sclerae white, conjunctivae pink. NECK: Carotid 2+. Normal upstroke. JVD flat. Thyroid not palpable. Lymph nodes not palpable. CHEST: Shows increased AP diameter. No kyphosis, scoliosis. LUNGS: Bilateral bronchovesicular breath sounds. HEART: PMI fifth intercostal space with lateral to midclavicular line. S1, S2. No S3, S4. Systolic murmur grade 2/6 at low left sternal border without radiation. ABDOMEN: Soft. Liver and spleen are not palpable. No organomegaly. Bowel sounds active. NEUROLOGIC: Unremarkable. EXTREMITIES: Peripheral pulses 2+. No pedal edema. CLINICAL IMPRESSION: 1. Complete heart block. The patient advised ____ pacemaker. 2. Sick sinus syndrome. 3. Hypertension. 4. Chronic obstructive pulmonary disease. 5. Nicotine dependence. 6. Diabetes mellitus type 2. JOB# [id number]
[2017-03-29 04:57] LABS: % BASOPHILS 0.4 % (0.0-2.0); % LYMPHOCYTES 16.1 % (20.0-50.0); % MONOCYTES 7.9 % (2.0-10.0); % NEUTROPHILS 72.6 % (40.0-80.0); HEMATOCRIT 38.5 % (41.0-60); HEMOGLOBIN 12.8 gm/dL (12-16); MEAN CELL VOLUME 100.4 fl (80-99); MEAN CORPUSCULAR HEMOGLOBIN 33.3 pg (27.0-31.0); MEAN CORPUSCULAR HGB CONC 33.1 pg (28.0-36.0); MEAN PLATELET VOLUME 8.8 fl; NEUTROPHILE ABSOLUTE 5.2 Th/cmm (1.8-8.0); PLATELET COUNT 123 Th/cmm (150-400); RED BLOOD COUNT 3.83 Mil/cmm (3.80-5.80); RED CELL DISTRIBUTION WIDTH 13.2 % (11.5-20.0); WHITE BLOOD COUNT 7.1 Th/cmm (4.8-10.8)
[2017-03-29 05:12] LABS: ANION GAP 7.6 (7.0-16.0); BUN - UREA NITROGEN 8 mg/dL (7-25); CALCIUM SERUM 8.5 mg/dL (8.6-10.3); CARBON DIOXIDE 22.8 mEq/L (21.0-31.0); CHLORIDE 109 mEq/L (98-107); CREATININE - SERUM 0.8 mg/dL (0.7-1.3); GLUCOSE 115 mg/dL (70-105); MAGNESIUM 1.7 mg/dL (1.9-2.7); POTASSIUM SERUM 3.4 mEq/L (3.5-5.1); SODIUM SERUM 136 mEq/L (136-145)
[2017-03-29] MEDS: Albuterol Nebulizer 2.5mg/3mL HHN SCH ×4 (06:47→18:54)
--- NOTE | 2017-03-29 09:17 | Diagnostic Imaging Report ---
CHEST X-RAY: AP view INDICATION: Pacemaker COMPARISON: Chest x-ray 03/28/2017 at 2:08 AM FINDINGS: Left chest wall pacemaker is seen with right atrial lead now facing inferiorly along the inferior aspect of the right atrium. Right ventricular lead is again noted now more superior in position. Chronic lung changes are seen with no focal consolidation or effusions. Left basal atelectatic changes are noted. Cardiomegaly is noted. No evidence of pneumothorax. IMPRESSION: Left chest wall pacemaker again noted. The right atrial lead is now seen located inferiorly along the inferior aspect of the right atrium. Correlation needs to be made clinically for possible lead malfunction and dislodgment. Right ventricular lead slightly more superior in position since prior exam. Chronic lung changes versus left basal atelectasis. No focal consolidation identified. Cardiomegaly.
--- NOTE | 2017-03-29 09:17 | Diagnostic Imaging Report ---
Fluoroscopy was utilized facilitation of pacemaker placement. Please refer to procedural report for complete details. The total fluoroscopic time for the exam was 54 seconds.
--- NOTE | 2017-03-29 09:19 | Diagnostic Imaging Report ---
CHEST X-RAY: AP view INDICATION: Repositioning of pacemaker leads COMPARISON: Chest x-ray earlier the same day at 10:41 AM FINDINGS: Pacemaker is again noted. The right atrial lead is seen now along the superior aspect of the right atrium. The right ventricular lead remains stable. Linear densities are seen throughout the lungs. No evidence of pneumothorax. Cardiomegaly is noted. IMPRESSION: Interval repositioning of the right atrial lead of the pacemaker now with tip located along the superior aspect the right atrium. The right ventricular lead remains stable. Linear densities throughout the lungs suggestive of atelectatic changes. No evidence of pneumothorax.
--- NOTE | 2017-03-29 09:20 | Diagnostic Imaging Report ---
CHEST X-RAY: AP view INDICATION: Pacemaker placement. Note patient had adjustment of the pacemaker leads COMPARISON: Chest x-ray earlier the same day at 03/28/2017 at 12:03 AM FINDINGS: Pacemaker is again noted with stable appearance of right ventricular and right atrial leads when compared to prior exam on 03/28/2017 at 12:03 AM. Chronic lung changes are noted. No focal consolidation or pleural effusions. Heart size is normal. Degenerative changes are noted. IMPRESSION: Stable appearance of pacemaker leads when compared to exam earlier the same day at 12:03 PM with leads in the region of right atrium and right ventricle. Please correlate with clinical findings. No focal consolidation identified.
--- NOTE | 2017-03-29 10:43 | General Progress Note ---
Subjective - Review of Systems Service Date: 03/29/17 Events since last encounter: pacemaker sensing and pacing with good thresholds patient immobilized on left upper extremity Objective - Results Result Diagrams: 03/29/17 04:34 03/29/17 04:34 Recent Labs: Laboratory Last Values WBC 7.1 Th/cmm (4.8-10.8) 03/29/17 04:34 RBC 3.83 Mil/cmm (3.80-5.80) 03/29/17 04:34 Hgb 12.8 gm/dL (12-16) 03/29/17 04:34 Hct 38.5 % (41.0-60) L 03/29/17 04:34 MCV 100.4 fl (80-99) H 03/29/17 04:34 MCH 33.3 pg (27.0-31.0) H 03/29/17 04:34 MCHC Differential 33.1 pg (28.0-36.0) 03/29/17 04:34 RDW 13.2 % (11.5-20.0) 03/29/17 04:34 Plt Count 123 Th/cmm (150-400) L 03/29/17 04:34 MPV 8.8 fl 03/29/17 04:34 Neutrophils % 72.6 % (40.0-80.0) 03/29/17 04:34 Lymphocytes % 16.1 % (20.0-50.0) L 03/29/17 04:34 Monocytes % 7.9 % (2.0-10.0) 03/29/17 04:34 Eosinophils % 3.0 % (0.0-5.0) 03/29/17 04:34 Basophils % 0.4 % (0.0-2.0) 03/29/17 04:34 PT 9.7 SECONDS (9.5-11.5) 03/27/17 04:29 INR 0.93 (0.5-1.4) 03/27/17 04:29 PTT (Actin FS) 23.2 SECONDS (26.0-38.0) L 03/27/17 04:29 Sodium 136 mEq/L (136-145) 03/29/17 04:34 Potassium 3.4 mEq/L (3.5-5.1) L 03/29/17 04:34 Chloride 109 mEq/L (98-107) H 03/29/17 04:34 Carbon Dioxide 22.8 mEq/L (21.0-31.0) 03/29/17 04:34 Anion Gap 7.6 (7.0-16.0) 03/29/17 04:34 BUN 8 mg/dL (7-25) 03/29/17 04:34 Creatinine 0.8 mg/dL (0.7-1.3) 03/29/17 04:34 Est GFR ( Amer) > 60.0 ml/min (>90) 03/29/17 04:34 Est GFR (Non-Af Amer) > 60.0 ml/min 03/29/17 04:34 BUN/Creatinine Ratio 10.0 03/29/17 04:34 Glucose 115 mg/dL (70-105) H 03/29/17 04:34 POC Glucose 143 MG/DL (70 - 105) H 03/27/17 14:54 Calcium 8.5 mg/dL (8.6-10.3) L 03/29/17 04:34 Phosphorus 3.1 mg/dL (2.5-5.0) 03/27/17 04:34 Magnesium 1.7 mg/dL (1.9-2.7) L 03/29/17 04:34 Total Bilirubin 0.4 mg/dL (0.3-1.0) 03/27/17 04:34 AST 30 U/L (13-39) 03/27/17 04:34 ALT 26 U/L (7-52) 03/27/17 04:34 Alkaline Phosphatase 96 U/L (34-104) 03/27/17 04:34 Troponin I 0.01 ng/mL (0.01-0.05) 03/26/17 17:45 B-Natriuretic Peptide 168.0 pg/mL (5.0-100.0) H 03/29/17 04:34 Total Protein 5.9 gm/dL (6.0-8.3) L 03/27/17 04:34 Albumin 3.6 gm/dL (4.2-5.5) L 03/27/17 04:34 Globulin 2.3 gm/dL 03/27/17 04:34 Albumin/Globulin Ratio 1.6 (1.0-1.8) 03/27/17 04:34 TSH 1.81 uIU/ml (0.34-5.60) 03/27/17 04:34 Urine Source RANDOM 03/27/17 14:45 Urine Color YELLOW 03/27/17 14:45 Urine Clarity CLEAR (CLEAR) 03/27/17 14:45 Urine pH 6.0 (4.6 - 8.0) 03/27/17 14:45 Ur Specific [place] >= 1.030 (1.005-1.030) 03/27/17 14:45 Urine Protein 30 mg/dL (NEGATIVE) H 03/27/17 14:45 Urine Glucose (UA) NEGATIVE mg/dL (NEGATIVE) 03/27/17 14:45 Urine Ketones NEGATIVE mg/dL (NEGATIVE) 03/27/17 14:45 Urine Blood NEGATIVE (NEGATIVE) 03/27/17 14:45 Urine Nitrate NEGATIVE (NEGATIVE) 03/27/17 14:45 Urine Bilirubin NEGATIVE (NEGATIVE) 03/27/17 14:45 Urine Urobilinogen 0.2 E.U./dL (0.2 - 1.0) 03/27/17 14:45 Ur Leukocyte Esterase NEGATIVE (NEGATIVE) 03/27/17 14:45 Urine RBC NONE SEEN /hpf (0-5) 03/27/17 14:45 Urine WBC NONE SEEN /hpf (0-5) 03/27/17 14:45 Ur Epithelial Cells NONE SEEN /lpf (FEW) 03/27/17 14:45 Urine Bacteria NONE SEEN /hpf (NONE SEEN) 03/27/17 14:45 - Physical Exam Vitals and I&O: Vital Signs Temp 98.2 F 03/29/17 08:00 Pulse 91 03/29/17 09:01 Resp 18 03/29/17 09:00 BP 148/98 03/29/17 09:01 Pulse Ox 89 03/29/17 09:00 Intake & Output 03/28/17 03/29/17 03/29/17 18:59 06:59 18:59 Intake Total 150 250 Output Total 1200 700 Balance -1050 -450 Weight (lbs) 63.73 kg 63.73 kg 62.142 kg Intake: Oral 150 250 Output: Urine 1200 700 Other: # Voids 3 # Bowel Movements 0 0 Active Medications: Current Medications Acetaminophen (Tylenol) 650 mg PO Q4H PRN PRN Reason: Pain Or Fever above 101 Stop: 05/25/17 18:15 Last Admin: 03/27/17 20:40 Dose: 650 mg Acetaminophen/Hydrocodone Bitart ([place] 10 Mg/325 Mg) 1 tab PO Q4H PRN PRN Reason: pain Stop: 05/26/17 18:22 Albuterol Sulfate (Albuterol 2.5mg/3ml Neb Ud) 2.5 mg HHN QIDRT [facility] Stop: 05/25/17 18:59 Last Admin: 03/29/17 06:47 Dose: 2.5 mg Aspirin (Ecotrin) 81 mg PO DAILY [facility] Stop: 05/26/17 08:59 Last Admin: 03/29/17 09:01 Dose: 81 mg Famotidine (Pepcid) 20 mg PO DAILY [facility] Stop: 05/26/17 08:59 Last Admin: 03/29/17 09:01 Dose: 20 mg Guaifenesin (Robitussin) 200 mg PO Q4HR PRN PRN Reason: Cough or Congestion Stop: 05/25/17 18:15 Heparin Sodium (Porcine) (Heparin) 5,000 units SUBQ Q12H [facility] Stop: 05/26/17 20:59 Last Admin: 03/29/17 09:02 Dose: 5,000 units Metoprolol Tartrate (Lopressor) 50 mg PO DAILY [facility] Stop: 05/26/17 20:14 Last Admin: 03/29/17 09:00 Dose: 50 mg Miscellaneous (Vte Chemical Prophylaxis Screen/ Admission) 1 ea PRN PRN PRN Reason: PROTOCOL Stop: 05/26/17 10:31 Miscellaneous (Probiotic Screen) 1 ea PRN PRN PRN Reason: PROTOCOL Stop: 05/27/17 15:37 Nitroglycerin (Nitrostat) 0.4 mg SL Q5MIN PRN PRN Reason: Chest Pain Stop: 05/25/17 18:15 Ondansetron HCl (Zofran) 4 mg IV Q8H PRN PRN Reason: Nausea / Vomiting Stop: 05/25/17 18:15 Valsartan (Diovan) 80 mg PO BID [facility] Stop: 05/27/17 16:59 Last Admin: 03/29/17 09:01 Dose: 80 mg
[2017-03-29] MEDS ORDERED: Potassium Chloride 20 mEq ER Tab PO ONE (10:55)
[2017-03-29] MEDS ORDERED: Mag Sulfate 2gm/50mL Premix 2 GM/50 ML BAG IV ONE (13:05)
--- NOTE | 2017-03-29 13:06 | Internal Medicine Prog Note ---
Internal Medicine Subjective - Subjective Patient seen and examined:: with staff, chart reviewed Patient is:: awake, verbal, interactive, in bed Patient Complaints of:: headache Per staff patient has:: no adverse event, no episodes of fall, tolerating meds Internal Medicine Objective - Results Result Diagrams: 03/29/17 04:34 03/29/17 04:34 Recent Labs: Laboratory Last Values WBC 7.1 Th/cmm (4.8-10.8) 03/29/17 04:34 RBC 3.83 Mil/cmm (3.80-5.80) 03/29/17 04:34 Hgb 12.8 gm/dL (12-16) 03/29/17 04:34 Hct 38.5 % (41.0-60) L 03/29/17 04:34 MCV 100.4 fl (80-99) H 03/29/17 04:34 MCH 33.3 pg (27.0-31.0) H 03/29/17 04:34 MCHC Differential 33.1 pg (28.0-36.0) 03/29/17 04:34 RDW 13.2 % (11.5-20.0) 03/29/17 04:34 Plt Count 123 Th/cmm (150-400) L 03/29/17 04:34 MPV 8.8 fl 03/29/17 04:34 Neutrophils % 72.6 % (40.0-80.0) 03/29/17 04:34 Lymphocytes % 16.1 % (20.0-50.0) L 03/29/17 04:34 Monocytes % 7.9 % (2.0-10.0) 03/29/17 04:34 Eosinophils % 3.0 % (0.0-5.0) 03/29/17 04:34 Basophils % 0.4 % (0.0-2.0) 03/29/17 04:34 PT 9.7 SECONDS (9.5-11.5) 03/27/17 04:29 INR 0.93 (0.5-1.4) 03/27/17 04:29 PTT (Actin FS) 23.2 SECONDS (26.0-38.0) L 03/27/17 04:29 Sodium 136 mEq/L (136-145) 03/29/17 04:34 Potassium 3.4 mEq/L (3.5-5.1) L 03/29/17 04:34 Chloride 109 mEq/L (98-107) H 03/29/17 04:34 Carbon Dioxide 22.8 mEq/L (21.0-31.0) 03/29/17 04:34 Anion Gap 7.6 (7.0-16.0) 03/29/17 04:34 BUN 8 mg/dL (7-25) 03/29/17 04:34 Creatinine 0.8 mg/dL (0.7-1.3) 03/29/17 04:34 Est GFR ( Amer) > 60.0 ml/min (>90) 03/29/17 04:34 Est GFR (Non-Af Amer) > 60.0 ml/min 03/29/17 04:34 BUN/Creatinine Ratio 10.0 03/29/17 04:34 Glucose 115 mg/dL (70-105) H 03/29/17 04:34 POC Glucose 143 MG/DL (70 - 105) H 03/27/17 14:54 Calcium 8.5 mg/dL (8.6-10.3) L 03/29/17 04:34 Phosphorus 3.1 mg/dL (2.5-5.0) 03/27/17 04:34 Magnesium 1.7 mg/dL (1.9-2.7) L 03/29/17 04:34 Total Bilirubin 0.4 mg/dL (0.3-1.0) 03/27/17 04:34 AST 30 U/L (13-39) 03/27/17 04:34 ALT 26 U/L (7-52) 03/27/17 04:34 Alkaline Phosphatase 96 U/L (34-104) 03/27/17 04:34 Troponin I 0.01 ng/mL (0.01-0.05) 03/26/17 17:45 B-Natriuretic Peptide 168.0 pg/mL (5.0-100.0) H 03/29/17 04:34 Total Protein 5.9 gm/dL (6.0-8.3) L 03/27/17 04:34 Albumin 3.6 gm/dL (4.2-5.5) L 03/27/17 04:34 Globulin 2.3 gm/dL 03/27/17 04:34 Albumin/Globulin Ratio 1.6 (1.0-1.8) 03/27/17 04:34 TSH 1.81 uIU/ml (0.34-5.60) 03/27/17 04:34 Urine Source RANDOM 03/27/17 14:45 Urine Color YELLOW 03/27/17 14:45 Urine Clarity CLEAR (CLEAR) 03/27/17 14:45 Urine pH 6.0 (4.6 - 8.0) 03/27/17 14:45 Ur Specific [place] >= 1.030 (1.005-1.030) 03/27/17 14:45 Urine Protein 30 mg/dL (NEGATIVE) H 03/27/17 14:45 Urine Glucose (UA) NEGATIVE mg/dL (NEGATIVE) 03/27/17 14:45 Urine Ketones NEGATIVE mg/dL (NEGATIVE) 03/27/17 14:45 Urine Blood NEGATIVE (NEGATIVE) 03/27/17 14:45 Urine Nitrate NEGATIVE (NEGATIVE) 03/27/17 14:45 Urine Bilirubin NEGATIVE (NEGATIVE) 03/27/17 14:45 Urine Urobilinogen 0.2 E.U./dL (0.2 - 1.0) 03/27/17 14:45 Ur Leukocyte Esterase NEGATIVE (NEGATIVE) 03/27/17 14:45 Urine RBC NONE SEEN /hpf (0-5) 03/27/17 14:45 Urine WBC NONE SEEN /hpf (0-5) 03/27/17 14:45 Ur Epithelial Cells NONE SEEN /lpf (FEW) 03/27/17 14:45 Urine Bacteria NONE SEEN /hpf (NONE SEEN) 03/27/17 14:45 - Physical Exam Vitals and I&O: Vital Signs Temp 98.0 F 03/29/17 12:00 Pulse 79 03/29/17 12:00 Resp 18 03/29/17 12:00 BP 163/95 03/29/17 12:00 Pulse Ox 98 03/29/17 12:00 Intake & Output 03/28/17 03/29/17 03/29/17 18:59 06:59 18:59 Intake Total 150 250 Output Total 1200 700 Balance -1050 -450 Weight (lbs) 63.73 kg 63.73 kg 62.142 kg Intake: Oral 150 250 Output: Urine 1200 700 Other: # Voids 3 # Bowel Movements 0 0 Active Medications: Current Medications Acetaminophen (Tylenol) 650 mg PO Q4H PRN PRN Reason: Pain Or Fever above 101 Stop: 05/25/17 18:15 Last Admin: 03/27/17 20:40 Dose: 650 mg Acetaminophen/Hydrocodone Bitart ([place] 10 Mg/325 Mg) 1 tab PO Q4H PRN PRN Reason: pain Stop: 05/26/17 18:22 Albuterol Sulfate (Albuterol 2.5mg/3ml Neb Ud) 2.5 mg HHN QIDRT [facility] Stop: 05/25/17 18:59 Last Admin: 03/29/17 10:53 Dose: 2.5 mg Aspirin (Ecotrin) 81 mg PO DAILY [facility] Stop: 05/26/17 08:59 Last Admin: 03/29/17 09:01 Dose: 81 mg Famotidine (Pepcid) 20 mg PO DAILY [facility] Stop: 05/26/17 08:59 Last Admin: 03/29/17 09:01 Dose: 20 mg Guaifenesin (Robitussin) 200 mg PO Q4HR PRN PRN Reason: Cough or Congestion Stop: 05/25/17 18:15 Heparin Sodium (Porcine) (Heparin) 5,000 units SUBQ Q12H [facility] Stop: 05/26/17 20:59 Last Admin: 03/29/17 09:02 Dose: 5,000 units Miscellaneous (Vte Chemical Prophylaxis Screen/ Admission) 1 ea PRN PRN PRN Reason: PROTOCOL Stop: 05/26/17 10:31 Miscellaneous (Probiotic Screen) 1 ea PRN PRN PRN Reason: PROTOCOL Stop: 05/27/17 15:37 Nitroglycerin (Nitrostat) 0.4 mg SL Q5MIN PRN PRN Reason: Chest Pain Stop: 05/25/17 18:15 Ondansetron HCl (Zofran) 4 mg IV Q8H PRN PRN Reason: Nausea / Vomiting Stop: 05/25/17 18:15 Valsartan (Diovan) 80 mg PO BID [facility] Stop: 05/27/17 16:59 Last Admin: 03/29/17 09:01 Dose: 80 mg General: alert HEENT: NC/AT, PERRLA, EOMI Neck: Supple, No LAD Lungs: CTAB Cardiovascular: RRR, Normal S1, Normal S2, with murmur Abdomen: soft, non-tender, globular, non-distended, positive bowel sound Extremities: clear Neurological: no change Internal Medicine Assmt/Plan - Assessment Assessment: sp pacer 2 3 degree av block dm htn protein calorie mal elcetrolytes abn - Plan Plan: cont on iv hydration will titrate bp meds pain control surg and card follow up dw rn and family will correct lytes
[2017-03-30 05:00] LABS: % MONOCYTES 9.1 % (2.0-10.0); RED CELL DISTRIBUTION WIDTH 12.7 % (11.5-20.0)
[2017-03-30 05:05] LABS: % BASOPHILS 0.4 % (0.0-2.0); % EOSINOPHILS 3.3 % (0.0-5.0); % LYMPHOCYTES 17.2 % (20.0-50.0); HEMATOCRIT 36.2 % (41.0-60); HEMOGLOBIN 12.4 gm/dL (12-16); MEAN CELL VOLUME 98.6 fl (80-99); MEAN CORPUSCULAR HEMOGLOBIN 33.6 pg (27.0-31.0); MEAN CORPUSCULAR HGB CONC 34.1 pg (28.0-36.0); MEAN PLATELET VOLUME 8.5 fl; NEUTROPHILE ABSOLUTE 4.4 Th/cmm (1.8-8.0); PLATELET COUNT 120 Th/cmm (150-400); RED BLOOD COUNT 3.68 Mil/cmm (3.80-5.80); WHITE BLOOD COUNT 6.3 Th/cmm (4.8-10.8)
[2017-03-30 05:16] LABS: ANION GAP 9.5 (7.0-16.0); BUN - UREA NITROGEN 9 mg/dL (7-25); BUN/CREATININE RATIO 11.3; CALCIUM SERUM 8.8 mg/dL (8.6-10.3); CARBON DIOXIDE 23.2 mEq/L (21.0-31.0); CHLORIDE 108 mEq/L (98-107); CREATININE - SERUM 0.8 mg/dL (0.7-1.3); GLUCOSE 138 mg/dL (70-105); MAGNESIUM 1.9 mg/dL (1.9-2.7); POTASSIUM SERUM 3.7 mEq/L (3.5-5.1); SODIUM SERUM 137 mEq/L (136-145)
[2017-03-30] MEDS: Albuterol Nebulizer 2.5mg/3mL HHN SCH ×2 (06:55→11:18)
--- NOTE | 2017-03-30 16:24 | Discharge Summary ---
DATE OF DISCHARGE: 03/30/2017 CHIEF COMPLAINT: Bradycardia. FINAL DIAGNOSES: 1. 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 2. Hypertension. 3. Protein-calorie malnutrition. 4. Diabetes, diet control. 5. Electrolyte abnormalities. HISTORY: This is a 71-year-old male who apparently was having palpitations and was brought in through the Emergency Room, ____ third-degree AV block. The patient admitted to the ICU with permanent pacemaker. PHYSICAL EXAMINATION: VITAL SIGNS: Initial blood pressure 140/80, respirations 16, pulse 75, temperature 96.4. GENERAL: Elderly male, appears stated age. NECK: Supple. No mass. LUNGS: Equal breath sounds, few rhonchi. HEART: Regular rate and rhythm with systolic ejection murmur. ABDOMEN: Soft, globular. EXTREMITIES: Positive excoriations. CHEST: There is a pacemaker in the left chest. HOSPITAL COURSE: The patient was admitted to the ICU and was seen by Cardiology, Dr. Reena Solano and Dr. Timmons for surgery. The patient's pacemaker placed first time was dislodged and had to be placed with a temporary pacer again. The patient was taken back to the operating room. The patient was told not to move the left upper extremity. The patient cleared by Surgery as well as Cardiology. CONDITION ON DISCHARGE: Fair. DISCHARGE INSTRUCTIONS: The patient to continue beta-sherly as well as angiotensin receptor sherly. The patient will follow ____ with Cardiology and Surgery. JOB# [id number]
== END 2017-03-30 15:45 | disposition home or self-care (01) | DRG 243 ==
LOC: ER 17:13 → ICU 18:10 → TELE 03-29 17:38
PROVIDERS: ADMIT Internal Medicine; ATTEND Internal Medicine
PROC: 0JH606Z Insertion of Pacemaker, Dual Chamber into Chest Subcutaneous Tissue and Fascia, Open Approach (ICD-10-PCS; principal; 2017-03-27)
PROC: 02HK3JZ Insertion of Pacemaker Lead into Right Ventricle, Percutaneous Approach (ICD-10-PCS; 2017-03-27)
PROC: 02H63JZ Insertion of Pacemaker Lead into Right Atrium, Percutaneous Approach (ICD-10-PCS; 2017-03-27)
PROC: 02WA3MZ Revision of Cardiac Lead in Heart, Percutaneous Approach (ICD-10-PCS; 2017-03-28)
DX: I44.2 Atrioventricular block, complete (principal); E44.0 Moderate protein-calorie malnutrition; J44.9 Chronic obstructive pulmonary disease, unspecified; T82.128A Displacement of other cardiac electronic device, initial encounter; I10 Essential (primary) hypertension; E11.9 Type 2 diabetes mellitus without complications; F17.210 Nicotine dependence, cigarettes, uncomplicated; I49.5 Sick sinus syndrome; Y83.8 Other surgical procedures as the cause of abnormal reaction of the patient, or of later complication, without mention of misadventure at the time of the procedure; Y92.89 Other specified places as the place of occurrence of the external cause; Z68.24 Body mass index [BMI] 24.0-24.9, adult
CPT/HCPCS: 36415-UA; 71010-TC; 76000-TC; 80048-TC; 80053-TC; 81001-TC; 82948-90; 83735-TC; 83880-TC; 84100-TC; 84443-TC; 84484-TC; 85025-TC; 85610-TC; 93005; 94640; 94760; J0461; J0690; J1644; J2001; J3475; J7042; J7613; V2790; X6206; Z7610